=== PATIENT | male | born 1975 | race Caucasian/White ===

== ENCOUNTER 2016-11-22 07:06 | Emergency (ER) | payer BC ==
[~2016-11-22] VITALS: Ht 170.2 cm; Wt 79.5 kg
[~2016-11-22 07:06] MED LIST: LIPITOR 10MG10 MG PO; NOVOLIN N100 U/ML SQ; NOVOLIN R100 U/ML SQ; SEROQUEL400 MG PO; TYLENOL W/COD1 UDTAB PO; VOLTAREN 75 DR75 MG PO
[2016-11-22 07:09] VITALS: BP 118/72; PULSE 74; TEMP 98.3
== END 2016-11-22 07:50 | disposition home or self-care (01) ==
LOC: COL.ER 07:06
DX: S29.012A Strain of muscle and tendon of back wall of thorax, initial encounter (principal); X58.XXXA Exposure to other specified factors, initial encounter; Y92.003 Bedroom of unspecified non-institutional (private) residence as the place of occurrence of the external cause; E11.9 Type 2 diabetes mellitus without complications; Z79.4 Long term (current) use of insulin
CPT/HCPCS: J1885; J2360

== ENCOUNTER 2018-08-31 07:27 | Emergency (ER) | payer BC ==
[~2018-08-31] VITALS: Ht 167.6 cm; Wt 75.0 kg
[2018-08-31 07:38] VITALS: BP 137/71; TEMP 97
[2018-08-31] MEDS ORDERED: FLEXERIL 1010 MG/TAB PO (08:34)
[2018-08-31] MEDS ORDERED: NORCO 325 MG-7.1 TAB PO (08:55)
[2018-08-31 09:47] VITALS: PULSE 74
== END 2018-08-31 09:47 | disposition home or self-care (01) ==
LOC: COL.ER 07:27
DX: M54.12 Radiculopathy, cervical region (principal); R20.2 Paresthesia of skin; E10.42 Type 1 diabetes mellitus with diabetic polyneuropathy; F17.210 Nicotine dependence, cigarettes, uncomplicated; F12.90 Cannabis use, unspecified, uncomplicated; Z90.89 Acquired absence of other organs
CPT/HCPCS: J1885

== ENCOUNTER 2018-10-16 07:41 | Emergency (ER) | payer BC ==
[~2018-10-16] VITALS: Ht 167.6 cm; Wt 75.9 kg
[~2018-10-16 07:41] MED LIST changes: +FLEXERIL 1010 MG/TAB PO; +NORCO 325 MG-7.1 TAB PO
[2018-10-16 08:03] LABS: BASO # 0.1 (0.0-0.2); BASO % 0.6 % (0.0-2.0); EOS # 0.4 (0.0-0.7); EOS % 3.6 % (0-4.0); GRAN # 6.5 (1.4-6.5); GRAN % 59.5 % (42.2-75.2); HEMATOCRIT 45.9 % (42.0-52.0); HEMOGLOBIN 15.2 g/dl (13.5-18.0); LYMPH # 3.3 (1.2-3.4); LYMPH % 29.7 % (20.0-51.0); MEAN CELL VOLUME 88 fl (80.0-100.0); MEAN CORPUSCULAR HEMOGLOBIN 29 pg (27.0-31.0); MEAN CORPUSCULAR HGB CONC 33 g/dl (33.0-37.0); MEAN PLATELET VOLUME 9.9 fl (7.4-10.4); MONO # 0.7 (0.1-0.6); MONO % 6.1 % (1.7-9.3); PLATELET COUNT 402 K/mm3 (130-400); RED BLOOD COUNT 5.23 M/mm3 (4.20-5.60)
[2018-10-16 08:09] LABS: ALANINE AMINOTRANSFERASE 16 U/L (21-72); ALBUMIN 4.7 gm/dL (3.5-5.0); ALKALINE PHOSPHATASE 129 U/L (50-136); ANION GAP 14 mmol/L (7-16); AST,SGOT 33 U/L (15-37); BILIRUBIN,TOTAL 0.8 mg/dL (0.0-1.0); BLOOD UREA NITROGEN 12 mg/dL (9-20); CALCIUM 9.7 mg/dL (8.4-10.2); CARBON DIOXIDE 24 mmol/L (22-30); CHLORIDE 104 mmol/L (98-107); CREATININE, serum 0.78 (0.66-1.25); GLUCOSE 131 mg/dL (74-106); LIPASE 25 U/L (23-300); SODIUM 142 mmol/L (137-145); TOTAL PROTEIN 7.9 gm/dL (6.4-8.2)
[2018-10-16 08:22] LABS: TROPONIN-I < 0.012 ng/mL (0.000-0.035)
[2018-10-16 09:31] LABS: COLLECTION METHOD CLEAN CATCH
[2018-10-16 09:37] LABS: PH 7 (5-8); SQUAMOUS EPITHELIAL None Seen /hpf; URINE APPEARANCE Clear; URINE BACTERIA None Seen /hpf; URINE BILIRUBIN Negative (NEGATIVE); URINE BLOOD Negative (NEGATIVE); URINE COLOR Straw; URINE GLUCOSE Negative (NEGATIVE); URINE KETONE Trace (NEGATIVE); URINE LEUKOCYTE ESTERASE Negative (NEGATIVE); URINE NITRATE Negative (NEGATIVE); URINE PROTEIN(semi-quant) Negative (NEGATIVE); URINE RBC 0-2 /hpf; URINE UROBILINOGEN Negative (NEGATIVE)
[2018-10-16 11:02] VITALS: BP 115/69; PULSE 73
== END 2018-10-16 11:02 | disposition home or self-care (01) ==
LOC: COL.ER 07:41
PROVIDERS: Emergency Medicine
DX: R41.0 Disorientation, unspecified (principal); E11.42 Type 2 diabetes mellitus with diabetic polyneuropathy; Z79.4 Long term (current) use of insulin
CPT/HCPCS: J1200; J1630; J1885; J2060; J7030

== ENCOUNTER 2018-10-22 10:17 | Emergency (ER) | payer BC ==
[~2018-10-22] VITALS: Ht 170.2 cm; Wt 81.8 kg
[2018-10-22 10:18] VITALS: TEMP 98.3
[2018-10-22 10:31] LABS: BASO % 0.4 % (0.0-2.0); EOS # 0.4 (0.0-0.7); EOS % 3.5 % (0-4.0); GRAN # 6.4 (1.4-6.5); HEMATOCRIT 43.2 % (42.0-52.0); HEMOGLOBIN 14.2 g/dl (13.5-18.0); LYMPH # 2.5 (1.2-3.4); LYMPH % 24.9 % (20.0-51.0); MEAN CELL VOLUME 89 fl (80.0-100.0); MEAN CORPUSCULAR HEMOGLOBIN 29 pg (27.0-31.0); MEAN CORPUSCULAR HGB CONC 33 g/dl (33.0-37.0); MEAN PLATELET VOLUME 10.1 fl (7.4-10.4); MONO # 0.6 (0.1-0.6); MONO % 5.6 % (1.7-9.3); PLATELET COUNT 362 K/mm3 (130-400); RED BLOOD COUNT 4.83 M/mm3 (4.20-5.60); REDCELL DISTRIBUTION WIDTH-CV 12.9 % (11.5-14.5)
[2018-10-22 10:40] LABS: ALBUMIN 4.1 gm/dL (3.5-5.0); BILIRUBIN,TOTAL 0.3 mg/dL (0.0-1.0); CREATININE, serum 0.8 (0.66-1.25); POTASSIUM 3.9 mmol/L (3.4-5.0); TOTAL PROTEIN 6.7 gm/dL (6.4-8.2)
[2018-10-22 10:41] LABS: C-REACTIVE PROTEIN 0.5 mg/dL (0.0-0.9)
[2018-10-22 14:04] LABS: COLLECTION METHOD CLEAN CATCH
[2018-10-22 14:05] VITALS: BP 133/72; PULSE 88
[2018-10-22 14:10] LABS: PH 7 (5-8); SQUAMOUS EPITHELIAL None Seen /hpf; URINE APPEARANCE Clear; URINE BACTERIA Rare /hpf; URINE BILIRUBIN Negative (NEGATIVE); URINE BLOOD Negative (NEGATIVE); URINE COLOR Yellow; URINE GLUCOSE 3+ (NEGATIVE); URINE KETONE Negative (NEGATIVE); URINE LEUKOCYTE ESTERASE Negative (NEGATIVE); URINE NITRATE Negative (NEGATIVE); URINE PROTEIN(semi-quant) Negative (NEGATIVE); URINE RBC 0-2 /hpf; URINE UROBILINOGEN Negative (NEGATIVE)
== END 2018-10-22 14:06 | disposition home or self-care (01) ==
LOC: COL.ER 10:17
PROVIDERS: Family Medicine
DX: E10.649 Type 1 diabetes mellitus with hypoglycemia without coma (principal); T38.3X5A Adverse effect of insulin and oral hypoglycemic [antidiabetic] drugs, initial encounter
CPT/HCPCS: J2405; J3010

== ENCOUNTER 2020-01-11 08:08 | Emergency (ER) | payer SELFPAY ==
[~2020-01-11] VITALS: Ht 170.2 cm; Wt 73.6 kg
[2020-01-11 08:18] VITALS: BP 121/67; TEMP 98.1
[2020-01-11] MEDS ORDERED: FLEXERIL 1010 MG/TAB PO (09:22)
[2020-01-11] MEDS ORDERED: NORCO 325 MG-51 TAB PO (09:22)
[2020-01-11 09:33] VITALS: PULSE 70
== END 2020-01-11 09:30 | disposition home or self-care (01) ==
LOC: COL.ER 08:08
DX: M54.5 Low back pain (principal); E11.9 Type 2 diabetes mellitus without complications; F17.210 Nicotine dependence, cigarettes, uncomplicated; Z79.4 Long term (current) use of insulin; Z90.89 Acquired absence of other organs
CPT/HCPCS: J1885; J2360

== ENCOUNTER 2020-04-08 09:52 | Emergency (ER) | payer OTHER ==
[~2020-04-08] VITALS: Ht 167.6 cm; Wt 72.7 kg
[~2020-04-08 09:52] MED LIST changes: +NORCO 325 MG-51 TAB PO
[2020-04-08 10:13] VITALS: TEMP 98.2
[2020-04-08] MEDS ORDERED: BACTRIM DS 8001 TAB PO (12:23)
[2020-04-08 12:44] VITALS: BP 117/69; PULSE 70
== END 2020-04-08 12:44 | disposition home or self-care (01) ==
LOC: COL.ER 09:52
DX: L02.31 Cutaneous abscess of buttock (principal); E10.9 Type 1 diabetes mellitus without complications; Z79.4 Long term (current) use of insulin; Z88.8 Allergy status to other drugs, medicaments and biological substances

== ENCOUNTER 2020-08-30 18:09 | Inpatient (IN) | payer OTHER ==
[~2020-08-30] VITALS: Ht 167.6 cm; Wt 72.2 kg
[2020-08-30] VITALS (76 sets, daily range): BP systolic 118–142; BP diastolic 59–67; PULSE 99–103; TEMP 98.3; O2SAT 95–99
[~2020-08-30 18:09] MED LIST changes: +BACTRIM DS 8001 TAB PO
[2020-08-30 18:29] LABS: HEMOGLOBIN 15.6 g/dl (13.5-18.0); MEAN CELL VOLUME 91 fl (80.0-100.0); MEAN CORPUSCULAR HEMOGLOBIN 29 pg (27.0-31.0); MEAN CORPUSCULAR HGB CONC 32 g/dl (33.0-37.0); MEAN PLATELET VOLUME 10.3 fl (7.4-10.4); PLATELET COUNT 475 K/mm3 (130-400); RED BLOOD COUNT 5.39 M/mm3 (4.20-5.60); REDCELL DISTRIBUTION WIDTH-CV 13.4 % (11.5-14.5)
[2020-08-30 18:42] LABS: ALBUMIN 4.8 gm/dL (3.5-5.0); C-REACTIVE PROTEIN 0.6 mg/dL (0.0-0.9); CALCIUM 9.4 mg/dL (8.4-10.2); CREATININE, serum 0.94 (0.66-1.25); POTASSIUM 4.7 mmol/L (3.4-5.0)
[2020-08-30 18:51] LABS: BAND 1 % (0-10); LYMPHOCYTE 10 % (20.0-51.0); NEUTROPHILS 86 % (42.0-75.2)
[2020-08-30 18:52] LABS: HYPOCHROMIA 2+; PLATELET ESTIMATE INCREASED (NORMAL)
[2020-08-30 20:15] LABS: ARTERIAL BLOOD GAS PCO2 23.4 mmHg (35-45)
[2020-08-30 20:16] LABS: ARTERIAL BLOOD GAS BASE EXCESS -17.1 (-2-2); ARTERIAL BLOOD GAS HCO3 8.9 meq/L (22-26); ARTERIAL BLOOD GAS PO2 94.2 mmHg (80-100)
[2020-08-30 20:17] LABS: ARTERIAL BLD GAS O2 SATURATION 96.6 % (92-100)
[2020-08-30 22:21] LABS: ANION GAP 23 mmol/L (7-16); BLOOD UREA NITROGEN 21 mg/dL (9-20); CALCIUM 8.7 mg/dL (8.4-10.2); CHLORIDE 103 mmol/L (98-107); CREATININE, serum 0.96 (0.66-1.25); GLUCOSE 354 mg/dL (74-106); MAGNESIUM 1.8 mg/dL (1.6-2.3); PHOSPHOROUS 4.1 mg/dL (2.5-4.5); SODIUM 135 mmol/L (137-145)
[2020-08-30 22:37] LABS: CARBON DIOXIDE 9 mmol/L (22-30)
[2020-08-30 23:27] LABS: ACETONE,SERUM SMALL
[2020-08-31] VITALS (348 sets, daily range): BP systolic 96–123; BP diastolic 53–66; PULSE 64–96; TEMP 98.1–98.6; O2SAT 88–100
[2020-08-31 01:53] LABS: COLLECTION METHOD CLEAN CATCH
[2020-08-31 01:57] LABS: CALCIUM 7.9 mg/dL (8.4-10.2); CREATININE, serum 0.8 (0.66-1.25); POTASSIUM 4.2 mmol/L (3.4-5.0)
[2020-08-31 01:58] LABS: PH 5 (5-8); SQUAMOUS EPITHELIAL None Seen /hpf; URINE APPEARANCE Clear; URINE BACTERIA None Seen /hpf; URINE BILIRUBIN Negative (NEGATIVE); URINE BLOOD Negative (NEGATIVE); URINE COLOR Yellow; URINE GLUCOSE 3+ (NEGATIVE); URINE KETONE 2+ (NEGATIVE); URINE LEUKOCYTE ESTERASE Negative (NEGATIVE); URINE NITRATE Negative (NEGATIVE); URINE PROTEIN(semi-quant) 1+ (NEGATIVE); URINE RBC 0-2 /hpf; URINE UROBILINOGEN Negative (NEGATIVE)
[2020-08-31 06:22] LABS: MEAN CELL VOLUME 91 fl (80.0-100.0); MEAN CORPUSCULAR HEMOGLOBIN 30 pg (27.0-31.0); MEAN CORPUSCULAR HGB CONC 33 g/dl (33.0-37.0); MEAN PLATELET VOLUME 10.6 fl (7.4-10.4); PLATELET COUNT 377 K/mm3 (130-400); RED BLOOD COUNT 4.28 M/mm3 (4.20-5.60); REDCELL DISTRIBUTION WIDTH-CV 13.7 % (11.5-14.5)
[2020-08-31 06:28] LABS: HEMOGLOBIN 12.7 g/dl (13.5-18.0)
[2020-08-31 06:34] LABS: CALCIUM 7.7 mg/dL (8.4-10.2); CREATININE, serum 0.69 (0.66-1.25); POTASSIUM 3.6 mmol/L (3.4-5.0)
[2020-08-31 06:52] LABS: BAND 2 % (0-10); LYMPHOCYTE 16 % (20.0-51.0); NEUTROPHILS 78 % (42.0-75.2); PLATELET ESTIMATE NORMAL (NORMAL)
--- NOTE | 2020-08-31 09:03 | NUR ---
03: pt upset, non aggressive, stating "I am going to leave if I can't eat anything". MD Juan called - update provided, orders given and entered. 909: Pt aggitated, yelling "take all this stuff off me, Im going home. They wont give me whole milk, they're going to give me skim milk. My ketoacidosis is gone, my blood sugars have been in the 100's for a long time. I dont need to be here anymore. Take this IV out or I'll do it myself and walk out of here." MD Juan notified. IV to left AC discontinued by me, pt refused tape on removal site. All belongings with pt. Pt refused to sign AMA paperwork. Security on unit standing by. Pt escorted to door - ambulating without difficulty. Pt did call for someone to give him a ride home. Pt refusing education and recommendation to follow up with PCP.
== END 2020-08-31 09:12 | disposition left against medical advice (07) | DRG 639 ==
LOC: COL.ER 18:09 → ICU 20:55
PROVIDERS: Nurse Practitioner Primary Care; Student in an Organized Health Care Education/Training Program; ADMIT Internal Medicine
DX: E10.10 Type 1 diabetes mellitus with ketoacidosis without coma (principal); E10.42 Type 1 diabetes mellitus with diabetic polyneuropathy; G89.29 Other chronic pain; D72.829 Elevated white blood cell count, unspecified; F17.210 Nicotine dependence, cigarettes, uncomplicated; Z79.1 Long term (current) use of non-steroidal anti-inflammatories (NSAID); Z88.8 Allergy status to other drugs, medicaments and biological substances
CPT/HCPCS: 99223-AI; J1644; J1815; J1885; J2405; J7030; Q9967

== ENCOUNTER 2020-11-02 13:24 | Emergency (ER) | payer OTHER, MEDICAID ==
[~2020-11-02] VITALS: Ht 167.6 cm; Wt 72.7 kg
[2020-11-02 14:45] LABS: BASO # 0.1 (0.0-0.2); BASO % 0.4 % (0.0-2.0); EOS # 0.3 (0.0-0.7); EOS % 1.7 % (0-4.0); GRAN # 11.8 (1.4-6.5); GRAN % 73.3 % (42.2-75.2); HEMATOCRIT 43.5 % (42.0-52.0); HEMOGLOBIN 14.3 g/dl (13.5-18.0); LYMPH # 2.7 (1.2-3.4); LYMPH % 16.9 % (20.0-51.0); MEAN CELL VOLUME 90 fl (80.0-100.0); MEAN CORPUSCULAR HEMOGLOBIN 29 pg (27.0-31.0); MEAN CORPUSCULAR HGB CONC 33 g/dl (33.0-37.0); MEAN PLATELET VOLUME 10.3 fl (7.4-10.4); MONO # 1.2 (0.1-0.6); MONO % 7.2 % (1.7-9.3); PLATELET COUNT 336 K/mm3 (130-400); RED BLOOD COUNT 4.86 M/mm3 (4.20-5.60); REDCELL DISTRIBUTION WIDTH-CV 14.2 % (11.5-14.5)
[2020-11-02 14:54] LABS: ALBUMIN 4.2 gm/dL (3.5-5.0); BILIRUBIN,TOTAL 0.4 mg/dL (0.0-1.0); CALCIUM 9.1 mg/dL (8.4-10.2); CREATININE, serum 0.76 (0.66-1.25); POTASSIUM 3.9 mmol/L (3.4-5.0); TOTAL PROTEIN 7.1 gm/dL (6.4-8.2)
[2020-11-02] MEDS ORDERED: CEPHALEXIN500 M1 PO (16:37)
[2020-11-02] MEDS ORDERED: PERCOCET 325 MG1 TA2 PO (16:37)
[2020-11-02 17:04] VITALS: BP 124/68; PULSE 78; TEMP 98.9
== END 2020-11-02 17:07 | disposition home or self-care (01) ==
LOC: COL.ER 13:24
PROVIDERS: Personal Emergency Response Attendant
DX: I88.9 Nonspecific lymphadenitis, unspecified (principal); E11.9 Type 2 diabetes mellitus without complications; F17.210 Nicotine dependence, cigarettes, uncomplicated; Z79.4 Long term (current) use of insulin
CPT/HCPCS: J0696; J2270; J2405; J7030; Q9967